=== PATIENT | male | born 1985 ===

== ENCOUNTER 2017-03-25 02:04 | Emergency (ER) | payer MEDICAID ==
[2017-03-25 02:12] VITALS: RESP 16
[2017-03-25] MEDS ORDERED: Fluorescein 1 mg Ophthalmic Strip ONE (02:55)
[2017-03-25] MEDS ORDERED: TDAP Vaccine 0.5 mL Syr IM ONE (03:02)
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
[2017-03-25 05:49] VITALS: BP 122/78; PULSE 72; TEMP 98.4; O2SAT 98
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
== END 2017-03-25 05:49 | disposition home or self-care (01) ==
LOC: H.ER 02:04
DX: S09.90XA Unspecified injury of head, initial encounter (principal); S00.81XA Abrasion of other part of head, initial encounter; S00.83XA Contusion of other part of head, initial encounter; S05.01XA Injury of conjunctiva and corneal abrasion without foreign body, right eye, initial encounter; Y04.0XXA Assault by unarmed brawl or fight, initial encounter; Y92.89 Other specified places as the place of occurrence of the external cause; F31.9 Bipolar disorder, unspecified; F41.9 Anxiety disorder, unspecified; F17.200 Nicotine dependence, unspecified, uncomplicated